=== PATIENT | male | born 1975 | race Caucasian/White ===

== ENCOUNTER 2018-05-28 18:55 | Inpatient (IN) ==
[2018-05-28] MEDS ORDERED: DILTIAZEM 50 MG/10 ML VIAL IV STA (19:18)
[2018-05-28] MEDS ORDERED: DILTIAZEM 25 MG/5 ML VIAL IV ONE (19:21)
[2018-05-28] MEDS ORDERED: DILTIAZEM INJ 100 MG in SODIUM CHLORIDE 0.9% 100 ML IV SCH (19:30)
[2018-05-28 19:45] LABS: Basophils % 0.3 % (0.0-0.8); Eosinophils # 0.1 10*3/uL (0.0-0.87); Eosinophils % 0.9 % (0.00-10.9); Hematocrit 38.7 VOL% (42.0-52.0); Hemoglobin 13.4 GM/DL (14.0-18.0); Immature Granulocytes % 0.5 %; Immature Granulocytes Absolute 0.06 #; Lymphocytes # 2.4 10*3/uL (1.4-4.0); Lymphocytes % 21.5 % (21.2-54.2); Mean Corpuscular HGB Conc 34.6 GM/DL (32-36); Mean Corpuscular Hemoglobin 30 PG (27-34); Mean Corpuscular Volume 87.8 FL (87-102); Mean Platelet Volume 11.5 FL (9.6-12.0); Monocytes % 8.8 % (1.7-12.7); Neutrophils # 7.5 10*3/uL (1.4-7.4); Platelet Count 255 T/CUMM (130-400); Red Blood Count 4.41 MC/CUMM (3.8-5.5); Red Cell Distribution Width 13.2 % (9.3-17.3)
[2018-05-28 19:48] LABS: Apearance,Urine CLEAR (Clear); Bilirubin,Urine Negative (Negative); Blood, Urine Negative (Negative); Glucose,Urine (UA) Negative (Negative); Ketones,Urine 20 mg/dL (Negative); Mucus,Urine Occasional /LPF (Occasional); Nitrite,Urine Negative (Negative); Protein,Urine Negative; Urine Color Yellow (Yellow); Urine Specific Gravity 1.012 (1.001-1.035); WBC,Urine <1 /HPF (0-6)
[2018-05-28 19:55] LABS: INR 1.3; PT Patient Result 13.4 SECS; Partial Thromboplastin Time 30.3 SECS (0-40)
[2018-05-28 19:56] LABS: Barbiturates Screen,Urine Negative (Negative); Benzodiazepines Screen,Urine Negative (Negative); Cannabinoid Screen,Urine Negative (Negative); Opiate Screen,Urine Negative (Negative); Phencyclidine Screen,Urine Negative (Negative)
[2018-05-28 20:12] LABS: Troponin I < 0.015 NG/ML (0.00-0.045)
[2018-05-28 20:17] LABS: Albumin 3.7 G/DL (3.4-5.0); Bilirubin,Total 1.1 MG/DL (0.2-1.0); Calcium 9.1 MG/DL (8.5-10.1); Osmolality,Calculated 282.3 MOS/KG (273-304); Potassium 3.9 MMOL/L (3.5-5.1); Thyroid Stimulating Hormone 3.06 uIU/ml (0.358-3.74); Total Protein 8.3 G/DL (6.4-8.3)
[2018-05-28] MEDS ORDERED: ONDANSETRON 4 MG/2 ML VIAL IV PRN (20:18)
[2018-05-28] MEDS ORDERED: DOCUSATE SODIUM 100 MG CAPSULE PO PRN (20:18)
[2018-05-28] MEDS ORDERED: ENOXAPARIN 40 MG/0.4 ML SYRINGE SUBCUT SCH (21:00)
[2018-05-28] MEDS: METOPROLOL TARTRATE 25 MG TABLET PO SCH (22:12)
[2018-05-28] MEDS: ACETAMINOPHEN 325 MG TABLET PO PRN (23:20)
[2018-05-29] MEDS: ZALEPLON 5 MG CAPSULE PO PRN ×2 (01:58→21:32)
[2018-05-29 04:13] LABS: Basophils % 0.4 % (0.0-0.8); Eosinophils # 0.2 10*3/uL (0.0-0.87); Eosinophils % 1.8 % (0.00-10.9); Hematocrit 37.3 VOL% (42.0-52.0); Hemoglobin 12.7 GM/DL (14.0-18.0); Immature Granulocytes % 0.4 %; Immature Granulocytes Absolute 0.04 #; Lymphocytes # 2.4 10*3/uL (1.4-4.0); Mean Corpuscular Hemoglobin 31 PG (27-34); Mean Corpuscular Volume 89.9 FL (87-102); Mean Platelet Volume 11.6 FL (9.6-12.0); Monocytes # 0.9 10*3/uL (0.11-0.8); Monocytes % 10.1 % (1.7-12.7); Neutrophils # 5.6 10*3/uL (1.4-7.4); Neutrophils % 61.3 % (38.7-73.9); Platelet Count 237 T/CUMM (130-400); Red Blood Count 4.15 MC/CUMM (3.8-5.5); Red Cell Distribution Width 13.2 % (9.3-17.3); White Blood Count 9.1 T/CUMM (4-12)
[2018-05-29 05:02] LABS: Calcium 8.7 MG/DL (8.5-10.1); Osmolality,Calculated 282.3 MOS/KG (273-304); Potassium 3.5 MMOL/L (3.5-5.1); Risk Ratio 5.38; Thyroid Stimulating Hormone 3.36 uIU/ml (0.358-3.74)
[2018-05-29 05:10] LABS: Folate 13.5 NG/ML (5.4-24.0); Vitamin B12 495 PG/ML (211-911)
[2018-05-29 05:16] LABS: % Iron Saturation 18.2 % (18-50); Ferritin 414.3 ng/ml (26-388)
[2018-05-29 05:32] LABS: Sedimentation Rate-Westergren 57 MM/HR (0-15)
[2018-05-29] MEDS ORDERED: POTASSIUM CHLORIDE 20 MEQ TABLET PO ONE (08:55)
[2018-05-29] MEDS: METOPROLOL TARTRATE 25 MG TABLET PO SCH (09:43)
[2018-05-29] MEDS: ASPIRIN EC 325 MG TABLET PO SCH (09:43)
[2018-05-29 09:44] LABS: Hemoglobin A1 (Alkaline) 97.9 % (96.5-98.5); Hemoglobin A2 (Alkaline) 2.1 % (1.5-3.5)
[2018-05-29] MEDS: ENOXAPARIN 40 MG/0.4 ML SYRINGE SUBCUT SCH ×2 (12:13→22:35)
[2018-05-29] MEDS: FLUTICASONE 50 MCG NASAL SPRAY 16 GM BOTTLE BOTH NARES SCH ×2 (12:14→21:33)
[2018-05-29] MEDS: ACETAMINOPHEN 325 MG TABLET PO PRN (21:32)
[2018-05-29] MEDS: SOTALOL 80 MG TABLET PO SCH (21:33)
[2018-05-29] MEDS: SPIRONOLACTONE 25 MG TABLET PO SCH (21:33)
[2018-05-29] MEDS: CARVEDILOL 3.125 MG TABLET PO SCH (21:33)
[2018-05-30 05:34] LABS: Basophils # 0.1 10*3/uL (0.0-0.2); Basophils % 0.6 % (0.0-0.8); Eosinophils # 0.2 10*3/uL (0.0-0.87); Eosinophils % 2.3 % (0.00-10.9); Hematocrit 38.6 VOL% (42.0-52.0); Immature Granulocytes % 0.4 %; Immature Granulocytes Absolute 0.03 #; Lymphocytes # 2.4 10*3/uL (1.4-4.0); Lymphocytes % 29.1 % (21.2-54.2); Mean Corpuscular HGB Conc 33.7 GM/DL (32-36); Mean Corpuscular Hemoglobin 30 PG (27-34); Mean Corpuscular Volume 87.9 FL (87-102); Mean Platelet Volume 11.9 FL (9.6-12.0); Monocytes # 0.9 10*3/uL (0.11-0.8); Monocytes % 10.8 % (1.7-12.7); Neutrophils # 4.7 10*3/uL (1.4-7.4); Neutrophils % 56.8 % (38.7-73.9); Platelet Count 254 T/CUMM (130-400); Red Blood Count 4.39 MC/CUMM (3.8-5.5); Red Cell Distribution Width 13.2 % (9.3-17.3); White Blood Count 8.2 T/CUMM (4-12)
[2018-05-30 05:36] LABS: Calcium 8.6 MG/DL (8.5-10.1); Osmolality,Calculated 283.3 MOS/KG (273-304); Potassium 4.1 MMOL/L (3.5-5.1)
[2018-05-30] MEDS ORDERED: METOPROLOL SUCCINATE XL 25 MG TABLET PO SCH (09:00)
[2018-05-30] MEDS ORDERED: SOTALOL 80 MG TABLET PO SCH (09:00)
[2018-05-30] MEDS: CARVEDILOL 3.125 MG TABLET PO SCH ×2 (09:34→21:39)
[2018-05-30] MEDS: SACUBITRIL/VALSARTAN 49-51 MG TABLET PO SCH ×2 (09:34→21:39)
[2018-05-30] MEDS: SOTALOL 80 MG TABLET PO SCH ×2 (09:34→21:39)
[2018-05-30] MEDS: PANTOPRAZOLE 40 MG TABLET PO SCH (09:34)
[2018-05-30] MEDS: ASPIRIN EC 325 MG TABLET PO SCH (09:34)
[2018-05-30] MEDS: FLUTICASONE 50 MCG NASAL SPRAY 16 GM BOTTLE BOTH NARES SCH ×2 (09:35→21:40)
[2018-05-30] MEDS: SPIRONOLACTONE 25 MG TABLET PO SCH (09:44)
[2018-05-30] MEDS ORDERED: POTASSIUM CHLORIDE RIDER 10 MEQ in PREMIX 1 EACH IV PRN (10:19)
[2018-05-30] MEDS ORDERED: MAGNESIUM SULF RIDER 2 GM in PREMIX 1 EACH IV PRN (10:19)
[2018-05-30] MEDS ORDERED: ALPRAZolam 0.25 MG TABLET PO PRN (10:21)
[2018-05-30] MEDS: ENOXAPARIN 40 MG/0.4 ML SYRINGE SUBCUT SCH ×2 (11:46→22:30)
[2018-05-30] MEDS: ZALEPLON 5 MG CAPSULE PO PRN (21:39)
[2018-05-31 04:27] LABS: Basophils # 0.1 10*3/uL (0.0-0.2); Basophils % 0.7 % (0.0-0.8); Eosinophils # 0.2 10*3/uL (0.0-0.87); Eosinophils % 1.9 % (0.00-10.9); Immature Granulocytes % 0.5 %; Immature Granulocytes Absolute 0.05 #; Lymphocytes # 2.4 10*3/uL (1.4-4.0); Lymphocytes % 24.3 % (21.2-54.2); Mean Corpuscular HGB Conc 34.1 GM/DL (32-36); Mean Corpuscular Hemoglobin 30 PG (27-34); Mean Corpuscular Volume 86.4 FL (87-102); Mean Platelet Volume 11.5 FL (9.6-12.0); Monocytes % 10.6 % (1.7-12.7); Neutrophils # 6.1 10*3/uL (1.4-7.4); Platelet Count 294 T/CUMM (130-400); Red Blood Count 5.09 MC/CUMM (3.8-5.5); Red Cell Distribution Width 13.2 % (9.3-17.3); White Blood Count 9.8 T/CUMM (4-12)
[2018-05-31 04:57] LABS: Calcium 8.7 MG/DL (8.5-10.1); Osmolality,Calculated 283.3 MOS/KG (273-304)
[2018-05-31 05:02] LABS: Calcium 8.6 MG/DL (8.5-10.1); Osmolality,Calculated 283.3 MOS/KG (273-304)
[2018-05-31] MEDS ORDERED: SODIUM CHLORIDE 0.45% 1,000 ML IV SCH (06:00)
[2018-05-31] MEDS: SOTALOL 80 MG TABLET PO SCH ×2 (11:20→20:52)
[2018-05-31] MEDS ORDERED: diphenhydrAMINE CAP 25 MG CAPSULE PO ONE (12:00)
[2018-05-31] MEDS ORDERED: DIAZEPAM 5 MG TABLET PO ONE (12:00)
[2018-05-31] MEDS ORDERED: HEPARIN/NACL 0.9% 2 UNITS/ML 1,000 ML IV ONE (13:09)
[2018-05-31] MEDS: CARVEDILOL 3.125 MG TABLET PO SCH ×2 (13:21→20:51)
[2018-05-31] MEDS: ASPIRIN EC 325 MG TABLET PO SCH (13:21)
[2018-05-31] MEDS: PANTOPRAZOLE 40 MG TABLET PO SCH (13:22)
[2018-05-31] MEDS: SACUBITRIL/VALSARTAN 49-51 MG TABLET PO SCH ×2 (13:22→20:51)
[2018-05-31] MEDS: FLUTICASONE 50 MCG NASAL SPRAY 16 GM BOTTLE BOTH NARES SCH ×2 (13:22→20:52)
[2018-05-31] MEDS: ENOXAPARIN 40 MG/0.4 ML SYRINGE SUBCUT SCH (13:22)
[2018-05-31] MEDS: SPIRONOLACTONE 25 MG TABLET PO SCH (13:22)
[2018-05-31] MEDS ORDERED: LIDOCAINE 1%/EPI INJ 20 ML VIAL ONE (13:28)
[2018-05-31] MEDS ORDERED: MIDAZOLAM 2 MG/2 ML VIAL ONE (14:01)
[2018-05-31] MEDS ORDERED: fentaNYL 100 MCG/2 ML VIAL ONE (14:02)
[2018-05-31] MEDS ORDERED: SODIUM CHLORIDE 0.9% 1,000 ML IV SCH (15:00)
[2018-05-31] MEDS: APIXABAN 5 MG TABLET PO SCH (20:51)
[2018-05-31] MEDS: ZALEPLON 5 MG CAPSULE PO PRN (21:32)
[2018-06-01 04:15] LABS: Basophils # 0.1 10*3/uL (0.0-0.2); Basophils % 0.6 % (0.0-0.8); Eosinophils # 0.2 10*3/uL (0.0-0.87); Hematocrit 43.5 VOL% (42.0-52.0); Hemoglobin 14.4 GM/DL (14.0-18.0); Immature Granulocytes % 0.4 %; Immature Granulocytes Absolute 0.04 #; Lymphocytes # 2.4 10*3/uL (1.4-4.0); Lymphocytes % 21.3 % (21.2-54.2); Mean Corpuscular HGB Conc 33.1 GM/DL (32-36); Mean Corpuscular Hemoglobin 30 PG (27-34); Mean Corpuscular Volume 90.6 FL (87-102); Mean Platelet Volume 11.5 FL (9.6-12.0); Monocytes # 1.2 10*3/uL (0.11-0.8); Monocytes % 10.9 % (1.7-12.7); Neutrophils # 7.3 10*3/uL (1.4-7.4); Neutrophils % 64.8 % (38.7-73.9); Platelet Count 282 T/CUMM (130-400); Red Cell Distribution Width 13.2 % (9.3-17.3); White Blood Count 11.2 T/CUMM (4-12)
[2018-06-01 04:51] LABS: Calcium 8.3 MG/DL (8.5-10.1); Osmolality,Calculated 285.1 MOS/KG (273-304); Potassium 3.6 MMOL/L (3.5-5.1)
[2018-06-01] MEDS: APIXABAN 5 MG TABLET PO SCH (09:21)
[2018-06-01] MEDS: CARVEDILOL 3.125 MG TABLET PO SCH (09:21)
[2018-06-01] MEDS: ASPIRIN EC 325 MG TABLET PO SCH (09:21)
[2018-06-01] MEDS: PANTOPRAZOLE 40 MG TABLET PO SCH (09:21)
[2018-06-01] MEDS: SPIRONOLACTONE 25 MG TABLET PO SCH (09:22)
[2018-06-01] MEDS: SOTALOL 80 MG TABLET PO SCH (09:22)
[2018-06-01] MEDS: FLUTICASONE 50 MCG NASAL SPRAY 16 GM BOTTLE BOTH NARES SCH (09:27)
[2018-06-01] MEDS: SACUBITRIL/VALSARTAN 49-51 MG TABLET PO SCH (11:36)
[2018-06-01 11:38] VITALS: BP 96/50
== END 2018-06-01 13:45 | disposition home or self-care (01) | DRG 287 ==
LOC: N.ED 18:55 → N.EDINP 18:55 → SUATTDRO 20:18 → N.TELEN 20:55 → SUATTDRO 05-29 09:43
PROVIDERS: ADMIT Hospitalist; ATTEND Internal Medicine